=== PATIENT | female | born 2000 | race Two or more races ===

== ENCOUNTER 2024-04-06 12:03 | Inpatient (IN) | payer SELFPAY ==
[2024-04-06] MEDS ORDERED: Misoprostol 400 MCG (4 X 100 MCG TAB) RECTAL PRN ×2 (13:10→22:22)
[2024-04-06] MEDS ORDERED: Methylergonovine 0.2 MG/1 ML Amp IM PRN (13:10)
[2024-04-06] MEDS ORDERED: Tranexamic Acid 1,000 MG in Sodium Chloride 0.9% 100 ML IV PRN ×2 (13:10→22:22)
[2024-04-06] MEDS ORDERED: Acetaminophen 325 MG Tab PO PRN ×2 (13:10→22:22)
[2024-04-06] MEDS ORDERED: Sodium Chloride 0.9% 10 ML Syringe FLUSH PRN ×2 (13:10→22:22)
[2024-04-06] MEDS ORDERED: Carboprost Tromethamine 250 MCG/1 ML Amp IM PRN ×2 (13:10→22:22)
[2024-04-06 13:22] LABS: HEMATOCRIT 36.5 % (37.0-47.0); HEMOGLOBIN 12.4 g/dL (12.0-16.0); MEAN CORPUSCULAR HEMOGLOBIN 28.6 pg (27.0-34.0); MEAN CORPUSCULAR VOLUME 84.1 fL (80-100); RED BLOOD CELL COUNT 4.34 10^6/uL (4.2-5.4); WHITE BLOOD CELL COUNT,WBC 14.9 10^3/uL (5.0-10.0)
[2024-04-06] MEDS: Lactated Ringers 1,000 ML IV ONE (14:50)
[2024-04-06] MEDS: Ondansetron 4 MG/2 ML SDV IVPUSH PRN (14:58)
[2024-04-06] MEDS ORDERED: fentaNYL 100 MCG/2 ML SDV EPIDUR ONE (15:04)
[2024-04-06] MEDS ORDERED: fentaNYL 100 MCG/2 ML SDV ONE (15:04)
[2024-04-06] MEDS: Lactated Ringers 1,000 ML IV SCH (15:30)
[2024-04-06] MEDS ORDERED: Phenylephrine HCl In 0.9% NaCl 1 MG/10 ML Syringe IVPUSH PRN (15:39)
[2024-04-06] MEDS ORDERED: ePHEDrine 50 MG/ML SDV IVPUSH PRN (15:39)
[2024-04-06] MEDS ORDERED: Ropivacaine 200 MG in Premix Bag 1 BAG EPIDUR SCH (15:45)
[2024-04-06] MEDS: Oxytocin/Normal Saline 30 UNIT/500 ML BAG IV SCH (18:27)
[2024-04-06] MEDS: Ibuprofen 800 MG Tab PO SCH ×2 (20:00→23:59)
[2024-04-06] MEDS: Lidocaine 1% 30 ML SDV INJECT ONE (22:01)
[2024-04-06] MEDS ORDERED: Simethicone 80 MG Tab.Chew PO PRN (22:22)
[2024-04-06] MEDS ORDERED: Oxytocin 10 Units/1 ML SDV IM PRN (22:22)
[2024-04-06] MEDS ORDERED: Benzocaine/Menthol 20%-0.5% Spray 78 GM Cannister TOP PRN (22:22)
[2024-04-07 06:33] LABS: HEMATOCRIT 35.9 % (37.0-47.0); MEAN CORPUSCULAR HEMOGLOBIN 28.2 pg (27.0-34.0); MEAN CORPUSCULAR HGB CONC 33.4 g/dL (33.0-35.0); MEAN CORPUSCULAR VOLUME 84.3 fL (80-100); RED BLOOD CELL COUNT 4.26 10^6/uL (4.2-5.4); WHITE BLOOD CELL COUNT,WBC 17.3 10^3/uL (5.0-10.0)
[2024-04-07] MEDS: Prenatal Multivitamin with Calcium/Folic Acid/Iron Tab PO SCH (08:22)
[2024-04-07] MEDS: Docusate Sodium 100 MG Cap PO PRN (08:22)
== END 2024-04-07 20:25 | disposition home or self-care (01) | DRG 807 ==
LOC: DL.OBCHECK 12:03 → DL.OB 13:10 → OBSVTOIN 18:24
PROVIDERS: ADMIT Obstetrics & Gynecology; ATTEND Obstetrics & Gynecology
PROC: 10E0XZZ Delivery of Products of Conception, External Approach (ICD-10-PCS; principal; 2024-04-06)
PROC: 10907ZC Drainage of Amniotic Fluid, Therapeutic from Products of Conception, Via Natural or Artificial Opening (ICD-10-PCS; 2024-04-06)
PROC: 3E0S3BZ Introduction of Anesthetic Agent into Epidural Space, Percutaneous Approach (ICD-10-PCS; 2024-04-06)
PROC: 00HU33Z Insertion of Infusion Device into Spinal Canal, Percutaneous Approach (ICD-10-PCS; 2024-04-06)
DX: O80 Encounter for full-term uncomplicated delivery (principal); Z37.0 Single live birth; Z3A.37 37 weeks gestation of pregnancy
CPT/HCPCS: 36415; 51702; 59409; 84112; 85027; 86850; 86900; 86901; A9270-GY; J2405; J2590; J3010; J7120

== ENCOUNTER 2024-07-16 15:27 | Emergency (ER) | payer SELFPAY ==
[2024-07-16] MEDS: diphenhydrAMINE 50 MG/ML SDV IM ONE (16:35)
[2024-07-16] MEDS: Dexamethasone 4 MG/ML SDV IM ONE (16:35)
== END 2024-07-16 17:34 | disposition home or self-care (01) ==
LOC: DL.ED 15:27
DX: T78.40XA Allergy, unspecified, initial encounter (principal)
CPT/HCPCS: 96372; 99283; J1100; J1200